=== PATIENT | female | born 1980 | race Caucasian/White ===

== ENCOUNTER 2017-03-23 10:34 | Day surgery (SDC) | payer OTHER ==
[~2017-03-23] VITALS: Ht 149.9 cm; Wt 93.0 kg
[~2017-03-23 10:34] MED LIST: ADVAIR 500/501 DISK IH; ADVIL,NUPRIN,M200 MG PO; ALLEGRA ALLERG180 MG PO; AVENTYL,PAMELOR50 MG PO; CORMAX50 M1 TP; ECONAZOLE NITRA15 GM TP; EXCEDRIN MIGRA1 EAC3 PO; FLONASE16 G1 BOTH NARES; LEVO-T150 MCG PO; MIRALAX17 GM PO; MORPHINE SULFAT15 M1 PO; NEURONTIN300 MG PO; NORCO 10/3251 TABLET PO; NORTRIPTYLINE H10 MG PO; OMEPRAZOLE40 M1 PO; PRILOSEC40 MG PO; REGLAN5 MG PO; SLEEP AID25 M1 PO; SYNTHROID112 MCG PO; TIZANIDINE HCL4 MG PO; VENTOLIN HFA18 GM IH; WELLBUTRIN SR150 MG PO; ZANAFLEX2 M1 PO; ZOLMITRIPTAN5 MG PO; ZYRTEC10 M2 PO
[2017-03-23 11:02] VITALS: BP 132/89
[2017-03-23 16:52] VITALS: BP 122/64
[2017-03-23 17:45] VITALS: BP 127/72
== END 2017-03-23 18:11 | disposition home or self-care (01) ==
LOC: SDC 10:34
PROC: 0PU30KZ Supplement Cervical Vertebra with Nonautologous Tissue Substitute, Open Approach (ICD-10-PCS; principal; 2017-03-23)
DX: M50.022 Cervical disc disorder at C5-C6 level with myelopathy (principal); M48.02 Spinal stenosis, cervical region; G80.9 Cerebral palsy, unspecified; R20.0 Anesthesia of skin; E66.9 Obesity, unspecified; Z68.41 Body mass index [BMI] 40.0-44.9, adult; F11.90 Opioid use, unspecified, uncomplicated; J45.909 Unspecified asthma, uncomplicated; Z87.891 Personal history of nicotine dependence; K21.9 Gastro-esophageal reflux disease without esophagitis; E04.9 Nontoxic goiter, unspecified; E78.6 Lipoprotein deficiency; E78.1 Pure hyperglyceridemia; Z83.3 Family history of diabetes mellitus; Z88.1 Allergy status to other antibiotic agents; Z88.2 Allergy status to sulfonamides; Z88.8 Allergy status to other drugs, medicaments and biological substances
CPT/HCPCS: 72020; 76000; 93005; C1713; J0330; J1100; J1170; J1885; J2250; J2405; J2710; J3010; J3370

== ENCOUNTER 2017-12-07 21:36 | Inpatient (IN) | payer OTHER ==
[~2017-12-07] VITALS: Ht 149.9 cm; Wt 92.5 kg
[~2017-12-07 21:36] MED LIST changes: +AMBIEN5 MG PO; +INDERAL10 MG PO; +LEVO-T137 MCG PO; -NEURONTIN300 MG PO; +NEURONTIN600 MG PO; +ZANTAC150 MG PO; +ZOFRAN4 MG PO
[2017-12-08 06:44] VITALS: BP 130/85
[2017-12-08 15:10] VITALS: BP 118/60
[2017-12-08 15:30] VITALS: BP 118/60
[2017-12-08 20:15] VITALS: BP 102/59
[2017-12-09 00:34] VITALS: BP 115/56
[2017-12-09 05:15] VITALS: BP 110/58
[2017-12-09 07:45] VITALS: BP 100/57
[2017-12-09 11:30] VITALS: BP 113/69
[2017-12-09 15:50] VITALS: BP 112/61
[2017-12-09 20:00] VITALS: BP 127/66
[2017-12-10 03:20] VITALS: BP 122/58
[2017-12-10 08:02] VITALS: BP 123/64
[2017-12-10 15:34] VITALS: BP 92/52; BP 95/58
[2017-12-10] MEDS ORDERED: ZOFRAN4 MG PO (16:28)
[2017-12-10] MEDS ORDERED: NORCO 10/3251 TABLET PO (16:28)
[2017-12-10] MEDS ORDERED: ZANAFLEX2 M1 PO (16:28)
[2017-12-10] MEDS ORDERED: ADULT FOLDING1 EACH MC (16:30)
== END 2017-12-10 17:36 | disposition home or self-care (01) | DRG 460 ==
LOC: ENRESERV 21:36 → 2SOUTH 12-08 05:34 → ENRESERV 12-08 12:50 → 3EAST 12-08 14:54
PROC: 0SG30A0 Fusion of Lumbosacral Joint with Interbody Fusion Device, Anterior Approach, Anterior Column, Open Approach (ICD-10-PCS; principal; 2017-12-08)
DX: M51.9 Unspecified thoracic, thoracolumbar and lumbosacral intervertebral disc disorder (principal); M54.9 Dorsalgia, unspecified; M79.605 Pain in left leg; M43.17 Spondylolisthesis, lumbosacral region; M54.16 Radiculopathy, lumbar region; E66.9 Obesity, unspecified; Z68.41 Body mass index [BMI] 40.0-44.9, adult
CPT/HCPCS: 72100; 76000; 86850; 86900; 86901; 99202; C1821; J0131; J0330; J0690; J1100; J1170; J2250; J2270; J2405; J2550; J2710; J2765; J3010; J3370; J3480; Q0175